=== PATIENT | male | born 1995 | race Caucasian/White ===

== ENCOUNTER 2016-08-18 17:05 | Emergency (ER) | payer BC, OTHER ==
[~2016-08-18] VITALS: Ht 180.3 cm; Wt 90.7 kg
[2016-08-18 17:22] LABS: BASOPHILS % (AUTO) 0 % (0-10); EOSINOPHILS % (AUTO) 0 % (0-10); LYMPHOCYTES # (AUTO) 0.7 X 10^3 (1.0-4.0); LYMPHOCYTES % (AUTO) 6 % (12-44); MEAN CORPUSCULAR HEMOGLOBIN 32 PG (25-34); MEAN CORPUSCULAR HGB CONC 37 G/DL (32-36); MEAN CORPUSCULAR VOLUME 88 FL (80-99); MEAN PLATELET VOLUME 11.8 FL (7.4-10.4); MONOCYTES # (AUTO) 0.7 X 10^3 (0.0-1.0); MONOCYTES % (AUTO) 6 % (0-12); NEUTROPHILS % (AUTO) 88 % (42-75); PLATELET COUNT 211 10^3/uL (130-400); RED CELL DISTRIBUTION WIDTH 12.5 % (10.0-14.5); WHITE BLOOD COUNT 11.3 10^3/uL (4.3-11.0)
[2016-08-18] MEDS ORDERED: LORazepam INJ 2 MG/ML (ATIVAN) VIAL IVP ONE (17:30)
[2016-08-18] MEDS ORDERED: NS 100 ML (IVPB) BAG IV ONE (17:30)
[2016-08-18] MEDS ORDERED: fentaNYL INJECTION 100 MCG/2 ML AMP IVP ONE (17:30)
[2016-08-18] MEDS ORDERED: FAMOTIDINE 20MG/2ML IV (PEPCID) IVP ONE (17:30)
[2016-08-18] MEDS ORDERED: IOHEXOL 350 MG/ML 100 ML (OMNIPAQUE 350) VIAL IV ONE (17:30)
[2016-08-18 17:39] LABS: ALANINE AMINOTRANSFERASE 46 U/L (0-55); ALBUMIN 4.2 G/DL (3.2-4.5); ALCOHOL < 10 MG/DL (<10); ANION GAP 15 MMOL/L (5-14); ASPARTATE AMINO TRANSFERASE 83 U/L (5-34); BILIRUBIN,TOTAL 1.7 MG/DL (0.1-1.0); BLOOD UREA NITROGEN 17 MG/DL (7-18); BUN/CREATININE RATIO 13; CALCIUM 8.9 MG/DL (8.5-10.1); CARBON DIOXIDE 19 MMOL/L (21-32); CHLORIDE 106 MMOL/L (98-107); CREATININE SERUM 1.27 MG/DL (0.60-1.30); GFR ESTIMATED > 60; GLUCOSE 103 MG/DL (70-105); LIPASE 57 U/L (8-78); POTASSIUM 3.3 MMOL/L (3.6-5.0); SODIUM 140 MMOL/L (135-145)
[2016-08-18 17:44] LABS: BAND NEUTROPHILS 0 %; BASOPHILS % (MANUAL) 0 %; EOSINOPHILS % (MANUAL) 0 %; LYMPHOCYTES % (MANUAL) 5 %; NEUTROPHILS % (MANUAL) 88 %
--- NOTE | 2016-08-18 18:05 | Diagnostic Imaging Report ---
PROCEDURE: CT abdomen and pelvis with contrast. TECHNIQUE: Multiple contiguous axial images were obtained through the abdomen and pelvis after administration of intravenous contrast. INDICATION: Mid abdominal pain with nausea and vomiting for 3 days. COMPARISON: None. DISCUSSION: The visualized lung bases are unremarkable. Normal heart size. No pleural or pericardial fluid. The gallbladder, liver, stomach, spleen, pancreas, adrenal glands, kidneys, urinary bladder, and prostate are unremarkable. The appendix is normal. The large and small bowel loops appear within normal limits without evidence of obstruction, pneumatosis, pneumoperitoneum. The abdominal aorta is normal in caliber. There is no ascites or pathologically enlarged lymph nodes identified. No acute osseous abnormality identified. IMPRESSION: No acute abnormality identified within either the abdomen or pelvis. Dictated by: Dictated on workstation # [id number]
--- NOTE | 2016-08-18 18:13 | ED Abdominal Pain ---
General Chief Complaint: Abdominal/GI Problems Stated Complaint: ABD PAIN Nursing Triage Note: PT SENT TO ED FROM [facility] WITH C/O ABD PAIN. PT REPORTS HE BEGAN HAVING PAIN THURSDAY AFTER HE HAD BEEN OUT DRINKING ON THURSDAY. HE ALSO C/O N/V. PT SENT TO ED FOR CT SCAN AND IRREGULAR LABS. Sepsis Screen: No Definite Risk Source of Information: Patient Exam Limitations: No Limitations History of Present Illness Time Seen By Provider: 17:04 Initial Comments This 21-year-old gentleman presents to the emergency room as a referral from Urgent Care with complaints of epigastric pain and vomiting. He went out drinking alcohol on Thursday and developed symptoms on Thursday. He also appears to be hyperventilating and has cramping in the hands as a result. He is very anxious and easily startled. He was given Zofran 4 mg IV and promethazine 50 mg IV prior to arrival. He also received 1 L of lactated Ringer's and 1 L of normal saline. He is still in some significant pain at this time. Lipase was mildly elevated on the labs performed by Urgent Care. Leukocytosis was also noted on his transfer and labs. Allergies and Home Medications Allergies Coded Allergies: No Known Drug Allergies (Unverified , 08/18/16) Home Medications Famotidine 20 Mg Tablet, 20 MG PO BID, #30 Prescribed by: LIZET WADE on 08/18/161928 Omeprazole 20 Mg Capsule.dr, 20 MG PO BID, #30 Prescribed by: LIZET WADE on 08/18/161928 Ondansetron 4 Mg Tab.rapdis, 4 MG SL Q4H PRN for NAUSEA-1ST LINE, #10 Prescribed by: LIZET WADE on 08/18/161928 Review of Systems Constitutional: no symptoms reported EENTM: No Symptoms Reported Respiratory: No Symptoms Reported Cardiovascular: No Symptoms Reported Gastrointestinal: See HPI Genitourinary: No Symptoms Reported Musculoskeletal: no symptoms reported Skin: no symptoms reported Psychiatric/Neurological: See HPI Endocrine: No Symptoms Reported Past Lubzptj-Rsyxbc-Fkucse Hx Patient Social History Alcohol Use: Occasionally Uses Recreational Drug Use: Yes Drug of Choice: MARIJUANA Smoking Status: Never a Smoker 2nd Hand Smoke Exposure: No Recent Foreign Travel: No Contact w/Someone Who Travel: No Recent Infectious Disease Expo: No Recent Hopitalizations: No Seasonal Allergies Seasonal Allergies: No Surgeries HX Surgeries: Yes Surgeries: Orthopedic (right fifth toe) Respiratory Hx Respiratory Disorders: No Cardiovascular Hx Cardiac Disorders: No Neurological Hx Neurological Disorders: No Reproductive System Hx Reproductive Disorders: No Genitourinary Hx Genitourinary Disorders: No Gastrointestinal Hx Gastrointestinal Disorders: No Musculoskeletal Hx Musculoskeletal Disorders: No Endocrine Hx Endocrine Disorders: No HEENT HX ENT Disorders: No Cancer Hx Cancer: No Psychosocial Hx Psychiatric Problems: No Integumentary HX Skin/Integumentary Disorder: Yes Skin/Integumentary Disorders: Psoriasis Blood Transfusions Hx Blood Disorders: No Family Medical History Significant Family History: Stroke Physical Exam Vital Signs VS - Last 72 Hours, by Label 08/18/16 08/18/16 17:10 19:40 Temp 98.6 98.6 Pulse 78 70 Resp 30 16 B/P (MAP) 111/72 Pulse Ox 100 100 O2 Delivery Room Air Capillary Refill : Less Than 3 Seconds General Appearance: WD/WN, mild distress HEENT: PERRL/EOMI, normal ENT inspection, pharynx normal Neck: normal inspection Respiratory: lungs clear, normal breath sounds, no respiratory distress, no accessory muscle use Cardiovascular: regular rate, rhythm, no edema, no murmur Gastrointestinal: normal bowel sounds, soft, tenderness (epigastrium) Extremities: no pedal edema 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8 H 7.4-10.4 FL Neutrophils (%) (Auto) 88 H 42-75 % Lymphocytes (%) (Auto) 6 L 12-44 % Monocytes (%) (Auto) 6 0-12 % Eosinophils (%) (Auto) 0 0-10 % Basophils (%) (Auto) 0 0-10 % Neutrophils # (Auto) 10.0 H 1.8-7.8 X 10^3 Lymphocytes # (Auto) 0.7 L 1.0-4.0 X 10^3 Monocytes # (Auto) 0.7 0.0-1.0 X 10^3 Eosinophils # (Auto) 0.0 0.0-0.3 10^3/uL Basophils # (Auto) 0.0 0.0-0.1 10^3/uL Neutrophils % (Manual) 88 % Lymphocytes % (Manual) 5 % Monocytes % (Manual) 7 % Eosinophils % (Manual) 0 % Basophils % (Manual) 0 % Band Neutrophils 0 % Blood Morphology Comment NORMAL Sodium Level 140 135-145 MMOL/L Potassium Level 3.3 L 3.6-5.0 MMOL/L Chloride Level 106 98-107 MMOL/L Carbon Dioxide Level 19 L 21-32 MMOL/L Anion Gap 15 H 5-14 MMOL/L Blood Urea Nitrogen 17 7-18 MG/DL Creatinine 1.27 0.60-1.30 MG/DL Estimat Glomerular Filtration Rate > 60 BUN/Creatinine Ratio 13 Glucose Level 103 70-105 MG/DL Calcium Level 8.9 8.5-10.1 MG/DL Magnesium Level 1.6 L 1.8-2.4 MG/DL Total Bilirubin 1.7 H 0.1-1.0 MG/DL Aspartate Amino Transf (AST/SGOT) 83 H 5-34 U/L Alanine Aminotransferase (ALT/SGPT) 46 0-55 U/L Alkaline Phosphatase 75 40-136 U/L Total Protein 7.0 6.4-8.2 G/DL Albumin 4.2 3.2-4.5 G/DL Amylase Level 46 25-125 U/L Lipase 57 8-78 U/L Serum Alcohol < 10 <10 MG/DL Urine Color YELLOW Urine Clarity CLEAR Urine pH 6 5-9 Urine Specific [place] 1.015 L 1.016-1.022 Urine Protein 2+ H NEGATIVE Urine Glucose (UA) NEGATIVE NEGATIVE Urine Ketones 4+ H NEGATIVE Urine Nitrite NEGATIVE NEGATIVE Urine Bilirubin NEGATIVE NEGATIVE Urine Urobilinogen NORMAL NORMAL MG/DL Urine Leukocyte Esterase 1+ H NEGATIVE Urine RBC (Auto) NEGATIVE NEGATIVE Urine RBC NONE /HPF Urine WBC NONE /HPF Urine Squamous Epithelial Cells RARE /HPF Urine Crystals PRESENT H /LPF Urine Calcium Oxalate Crystals RARE H /LPF Urine Bacteria NEGATIVE /HPF Urine Casts NONE /LPF Urine Mucus NEGATIVE /LPF Urine Culture Indicated NO Urine Opiates Screen NEGATIVE NEGATIVE Urine Oxycodone Screen NEGATIVE NEGATIVE Urine Methadone Screen NEGATIVE NEGATIVE Urine Propoxyphene Screen NEGATIVE NEGATIVE Urine Barbiturates Screen NEGATIVE NEGATIVE Ur Tricyclic Antidepressants Screen NEGATIVE NEGATIVE Urine Phencyclidine Screen NEGATIVE NEGATIVE Urine Amphetamines Screen POSITIVE H NEGATIVE Urine Methamphetamines Screen NEGATIVE NEGATIVE Urine Benzodiazepines Screen NEGATIVE NEGATIVE Urine Cocaine Screen NEGATIVE NEGATIVE Urine Cannabinoids Screen POSITIVE H NEGATIVE My Orders Orders - LIZET WASHINGTON MD Alcohol (08/18/16 17:16) Cbc With Automated Diff (08/18/16 17:16) Comprehensive Metabolic Panel (08/18/16 17:16) Drug Screen Stat (Urine) (08/18/16 17:16) Lipase (08/18/16 17:16) Ua Culture If Indicated (08/18/16 17:16) Fentanyl Injection (Sublimaze Injection (08/18/16 17:30) Famotidine Injection (Pepcid Injection) (08/18/16 17:30) Lorazepam Injection (Ativan Injection) (08/18/16 17:30) Ct Abdomen/Pelvis W (08/18/16 17:18) Manual Differential (08/18/16 17:12) Iohexol Injection (Omnipaque 350 Mg/Ml 1 (08/18/16 17:30) Ns (Ivpb) (Sodium Chloride 0.9% Ivpb Bag (08/18/16 17:30) Amylase (08/18/16 18:03) Magnesium (08/18/16 18:04) Lidocaine 2% Viscous 15 Ml (Xylocaine Vi (08/18/16 18:15) Antacid Suspension (Mylanta Suspension (08/18/16 18:15) Potassium Chloride (Tablet) (Klor Con Ta (08/18/16 19:30) Medications Given in ED Vital Signs/I&O Vital Sign - Last 12Hours 08/18/16 08/18/16 17:10 19:40 Temp 98.6 98.6 Pulse 78 70 Resp 30 16 B/P (MAP) 111/72 Pulse Ox 100 100 O2 Delivery Room Air Blood Pressure Mean: 85 Progress Note : Progress Note Pepcid and fentanyl were administered for treatment of pain. Ativan was given for the anxiety. CT scan was ordered due to the leukocytosis in combination with elevated lipase. In-house lipase and amylase were normal. CT demonstrated no significant abnormalities. GI cocktail was given after CT which did improve his pain. I addressed alcohol abuse and marijuana use with the patient. Potassium replacement was provided orally. He was dismissed home in improved condition. Diagnostic Imaging Plain Films/CT/US/NM/MRI: abdomen, pelvis Comments CT abdomen and pelvis viewed by me and report reviewed. See report below: NAME: [facility] REC#: [id number] PT STATUS: REG ER : 1995 PHYSICIAN: LIZET WASHIGNTON MD ADMIT DATE: 08/18/16/ER Draft Date of Exam:08/18/16 CT ABDOMEN/PELVIS W PROCEDURE: CT abdomen and pelvis with contrast. TECHNIQUE: Multiple contiguous axial images were obtained through the abdomen and pelvis after administration of intravenous contrast. INDICATION: Mid abdominal pain with nausea and vomiting for 3 days. COMPARISON: None. DISCUSSION: The visualized lung bases are unremarkable. Normal heart size. No pleural or pericardial fluid. The gallbladder, liver, stomach, spleen, pancreas, adrenal glands, kidneys, urinary bladder, and prostate are unremarkable. The appendix is normal. The large and small bowel loops appear within normal limits without evidence of obstruction, pneumatosis, pneumoperitoneum. The abdominal aorta is normal in caliber. There is no ascites or pathologically enlarged lymph nodes identified. No acute osseous abnormality identified. IMPRESSION: No acute abnormality identified within either the abdomen or pelvis. Dictated on workstation # [id number] Dict: 08/18/16 1801 Trans: 08/18/16 1804 [facility] [id number] Interpreted by: CHELSEA AZUL MD Departure Impression Impression: Primary Impression: Epigastric pain Additional Impressions: Gastritis Qualified Codes: K29.00 - Acute gastritis without bleeding Nausea and vomiting Qualified Codes: R11.2 - Nausea with vomiting, unspecified Alcohol use Anxiety attack Hypokalemia Disposition: HOME, SELF-CARE Condition: Improved Departure-Patient Inst. Decision time for Depature: 19:10 Referrals: UNKNOWN (PCP/Family) Primary Care Physician Patient Instructions: Acute Abdomen (Belly Pain), Adult (DC), Gastritis (DC) Add. Discharge Instructions: Start with noncarbonated clear liquids and gradually advance your diet with small quantities of bland food as tolerated. You may take Tylenol (acetaminophen) for pain but avoid NSAID medications such as ibuprofen, naproxen, etc. You may take Tums for stomach pain as well. Avoid the following: Large meals, eating close to bedtime, caffeine, carbonation , chocolate, spicy foods, alcohol, tobacco products, citrus fruits and juices, tomato products, fatty or greasy foods, mints, NSAID medications or anything else you know irritates your stomach. Follow-up with a primary care provider as as soon as possible. Avoid the use of stimulant medication such as Adderall and psychoactive substances such as marijuana as they may exacerbate your anxiety and worsen your stomach irritation. All discharge instructions reviewed with patient and/or family. Voiced understanding. Scripts Ondansetron (Zofran Odt) 4 Mg Tab.rapdis 4 MG SL Q4H Y for NAUSEA-1ST LINE, #10 TAB Prov: LIZET WASHINGTON MD 08/18/16 Famotidine (Pepcid) 20 Mg Tablet 20 MG PO BID, #30 TAB Prov: LIZET WASHINGTON MD 08/18/16 Omeprazole (Omeprazole) 20 Mg Capsule.dr 20 MG PO BID, #30 CAP Prov: LIZET WASHINGTON MD 08/18/16 LIZET WASHINGTON MD Aug 18, 2016 18:12
[2016-08-18] MEDS ORDERED: ANTACID SUSP 30 ML UDC (MYLANTA) PO ONE (18:15)
[2016-08-18] MEDS ORDERED: LIDOCAINE 2% VISCOUS 15 ML UDC PO ONE (18:15)
[2016-08-18 18:16] LABS: MAGNESIUM 1.6 MG/DL (1.8-2.4)
[2016-08-18 18:31] LABS: BILIRUBIN,URINE NEGATIVE (NEGATIVE); KETONES,URINE 4+ (NEGATIVE); LEUKOCYTE ESTERASE ,URINE 1+ (NEGATIVE); NITRITE,URINE NEGATIVE (NEGATIVE); PH,URINE 6 (5-9); PROTEIN,URINE 2+ (NEGATIVE); UROBILINOGEN,URINE NORMAL (NORMAL)
[2016-08-18 18:39] LABS: CALCIUM OXALATE CRYSTALS,UR RARE /LPF; SQUAMOUS EPITHELIAL CELL,UR RARE /HPF
[2016-08-18] MEDS ORDERED: OMEP20CA12 PO (19:29)
[2016-08-18] MEDS ORDERED: FAMO-119 PO (19:29)
[2016-08-18] MEDS ORDERED: ONDA4TAB8 SL (19:29)
[2016-08-18] MEDS ORDERED: KCL 10 MEQ TAB (MICRO K) PO ONE (19:30)
[2016-08-18 19:40] VITALS: BP 120/74
== END 2016-08-18 19:40 | disposition home or self-care (01) ==
LOC: ER 17:07
DX: K29.70 Gastritis, unspecified, without bleeding (principal); R11.2 Nausea with vomiting, unspecified; F10.10 Alcohol abuse, uncomplicated; F41.9 Anxiety disorder, unspecified; E87.6 Hypokalemia
CPT/HCPCS: 36415; 74177; 80053; 80306; 80320; 81000; 82150; 83690; 83735; 85007; 85027; 96374; 96375

== ENCOUNTER 2016-09-06 15:24 | Emergency (ER) | payer BC ==
[~2016-09-06] VITALS: Ht 180.3 cm; Wt 88.5 kg
[~2016-09-06 15:24] MED LIST: FAMO-119 PO; OMEP20CA12 PO; ONDA4TAB8 SL
[2016-09-06] MEDS ORDERED: NS IV 1000 ML 1,000 ML IV ONE (15:48)
[2016-09-06] MEDS ORDERED: ONDANSETRON 4 MG/2 ML (SDV) Z0FRAN IVP ONE ×2 (16:00→18:00)
[2016-09-06 16:08] LABS: BASOPHILS % (AUTO) 0 % (0-10); EOSINOPHILS # (AUTO) 0.2 10^3/uL (0.0-0.3); EOSINOPHILS % (AUTO) 2 % (0-10); LYMPHOCYTES # (AUTO) 0.8 X 10^3 (1.0-4.0); LYMPHOCYTES % (AUTO) 9 % (12-44); MEAN CORPUSCULAR HEMOGLOBIN 32 PG (25-34); MEAN CORPUSCULAR HGB CONC 36 G/DL (32-36); MEAN CORPUSCULAR VOLUME 90 FL (80-99); MEAN PLATELET VOLUME 11.4 FL (7.4-10.4); MONOCYTES # (AUTO) 0.6 X 10^3 (0.0-1.0); MONOCYTES % (AUTO) 6 % (0-12); NEUTROPHILS # (AUTO) 7.8 X 10^3 (1.8-7.8); NEUTROPHILS % (AUTO) 83 % (42-75); PLATELET COUNT 234 10^3/uL (130-400); RED BLOOD COUNT 4.77 10^6/uL (4.35-5.85); RED CELL DISTRIBUTION WIDTH 13.1 % (10.0-14.5); WHITE BLOOD COUNT 9.4 10^3/uL (4.3-11.0)
--- NOTE | 2016-09-06 16:32 | Diagnostic Imaging Report ---
INDICATION: Abdominal pain on the left. EXAMINATION: Upright and supine abdomen. FINDINGS: There is no evidence of free air under the diaphragm. There are no distended loops of bowel. There are no air-fluid levels. There is very little stool noted throughout the colon. No pathologic calcifications. IMPRESSION: Normal upright and supine KUB. Dictated by: Dictated on workstation # [id number]
[2016-09-06 16:33] LABS: ALANINE AMINOTRANSFERASE 45 U/L (0-55); ALBUMIN 4.7 G/DL (3.2-4.5); ANION GAP 13 MMOL/L (5-14); ASPARTATE AMINO TRANSFERASE 31 U/L (5-34); BLOOD UREA NITROGEN 12 MG/DL (7-18); BUN/CREATININE RATIO 10; CALCIUM 9.9 MG/DL (8.5-10.1); CARBON DIOXIDE 24 MMOL/L (21-32); CHLORIDE 104 MMOL/L (98-107); CREATININE SERUM 1.23 MG/DL (0.60-1.30); GFR ESTIMATED > 60; GLUCOSE 114 MG/DL (70-105); LIPASE 6 U/L (8-78); MAGNESIUM 2.1 MG/DL (1.8-2.4); POTASSIUM 3.9 MMOL/L (3.6-5.0); SODIUM 141 MMOL/L (135-145); TOTAL PROTEIN 7.8 G/DL (6.4-8.2); hs C REACTIVE PROTEIN 0.33 MG/DL (0.00-0.50)
[2016-09-06 16:34] LABS: ALCOHOL < 10 MG/DL (<10)
[2016-09-06 16:35] LABS: ERYTHROCYTE SEDIMENTATION RATE 6 MM/HR (0-15)
[2016-09-06 17:16] LABS: KETONES,URINE 4+ (NEGATIVE); LEUKOCYTE ESTERASE ,URINE 2+ (NEGATIVE); NITRITE,URINE NEGATIVE (NEGATIVE); PH,URINE 5 (5-9); PROTEIN,URINE 2+ (NEGATIVE); UROBILINOGEN,URINE 1 MG/DL (NORMAL)
[2016-09-06 17:39] LABS: BILIRUBIN,URINE 1+ (NEGATIVE)
[2016-09-06] MEDS ORDERED: NS IV 500 ML 500 ML IV ONE (17:51)
[2016-09-06] MEDS ORDERED: cefTRIAXone INJECTION 1,000 MG in NS (IVPB) 50 ML IV ONE (18:00)
[2016-09-06] MEDS ORDERED: CEPH-507 PO (18:19)
[2016-09-06] MEDS ORDERED: ONDA4TAB8 PO (18:19)
--- NOTE | 2016-09-06 18:20 | ED Abdominal Pain ---
General Chief Complaint: Abdominal/GI Problems Stated Complaint: SHARP ABD PAIN ON L SIDE Nursing Triage Note: C/O CONSTANT LEFT SIDED ABDOMINAL PAIN, NAUSEA/VOMITTING X16HRS Sepsis Screen: No Definite Risk Source of Information: Patient Exam Limitations: No Limitations History of Present Illness Time Seen By Provider: 15:38 Initial Comments This 21-year-old young man presents to the emergency room with complaints of left lower quadrant pain for about 16 hours. He has had recurrent episodes of vomiting and reports the pain is fairly constant. He denies diarrhea. Last bowel movement was last night at 22:00 and was normal. He has been trying to drink water throughout the day. His last meal was last night around 19:00. He has been trying to snack on crackers throughout the day but has been unable to keep them down. He was seen in this ER on August 18 for similar presentation except the location of the pain was more epigastric at that time. He was advised to discontinue alcohol consumption and was prescribed antacid therapy. A CT of the abdomen and pelvis with contrast at that time was negative. Patient has continued with antiacid medication but did resume consuming alcohol. He reports having 2 beers last night. He has not smoked marijuana since his prior ER visit. Allergies and Home Medications Allergies Coded Allergies: No Known Drug Allergies (Unverified , 08/18/16) Home Medications Cephalexin 500 Mg Capsule, 500 MG PO QID, #28 Prescribed by: LIZET WADE on 09/06/161818 Famotidine 20 Mg Tablet, 20 MG PO BID, #30 Prescribed by: LIZET WADE on 08/18/161928 Omeprazole 20 Mg Capsule.dr, 20 MG PO BID, #30 Prescribed by: LIZET WADE on 08/18/161928 Ondansetron 4 Mg Tab.rapdis, 4 MG SL Q4H PRN for NAUSEA-1ST LINE, #10 Prescribed by: LIZET WADE on 08/18/161928 Ondansetron 4 Mg Tab.rapdis, 4 MG PO Q4H PRN for NAUSEA/VOMITING-1ST LINE, #10 Prescribed by: LIZET WADE on 09/06/161818 Review of Systems Constitutional: no symptoms reported EENTM: No Symptoms Reported Respiratory: No Symptoms Reported Cardiovascular: No Symptoms Reported Gastrointestinal: See HPI Genitourinary: No Symptoms Reported Musculoskeletal: no symptoms reported Skin: no symptoms reported Psychiatric/Neurological: No Symptoms Reported Endocrine: No Symptoms Reported Past Vtcumck-Rngljs-Uxncll Hx Patient Social History Alcohol Use: Occasionally Uses Recreational Drug Use: Yes Drug of Choice: CANNIBUS Smoking Status: Never a Smoker Type Used: Smokeless Tobacco 2nd Hand Smoke Exposure: No Recent Foreign Travel: No Contact w/Someone Who Travel: No Recent Infectious Disease Expo: No Recent Hopitalizations: No Seasonal Allergies Seasonal Allergies: No Surgeries HX Surgeries: Yes Surgeries: Orthopedic Respiratory Hx Respiratory Disorders: No Cardiovascular Hx Cardiac Disorders: No Neurological Hx Neurological Disorders: No Reproductive System Hx Reproductive Disorders: No Genitourinary Hx Genitourinary Disorders: No Gastrointestinal Hx Gastrointestinal Disorders: Yes Gastrointestinal Disorders: Gastroesophageal Reflux Musculoskeletal Hx Musculoskeletal Disorders: No Endocrine Hx Endocrine Disorders: No HEENT HX ENT Disorders: No Cancer Hx Cancer: No Psychosocial Hx Psychiatric Problems: No Integumentary HX Skin/Integumentary Disorder: Yes Skin/Integumentary Disorders: Psoriasis Blood Transfusions Hx Blood Disorders: No Family Medical History Significant Family History: Stroke Physical Exam Vital Signs VS - Last 72 Hours, by Label 09/06/16 09/06/16 15:33 18:26 Temp 98.2 98.0 Pulse 60 52 Resp 16 16 B/P (MAP) 128/77 Pulse Ox 98 100 O2 Delivery Room Air Capillary Refill : Less Than 3 Seconds General Appearance: WD/WN, mild distress HEENT: PERRL/EOMI, normal ENT inspection, other (dry mucous membranes) Neck: normal inspection Respiratory: lungs clear, normal breath sounds, no respiratory distress, no accessory muscle use Cardiovascular: regular rate, rhythm, no edema, no murmur Gastrointestinal: normal bowel sounds, soft, no organomegaly, tenderness (mild to moderate in the left lower quadrant) Extremities: normal inspection, no pedal edema 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, no motor/sensory deficits, alert, normal mood/affect, oriented x 3 Skin: normal color, warm/dry Progress/Results/Core Measures Results/Orders Lab Results Laboratory Tests Test 09/06/16 16:00 09/06/16 16:55 Range/Units White Blood Count 9.4 4.3-11.0 10^3/uL Red Blood Count 4.77 4.35-5.85 10^6/uL Hemoglobin 15.3 13.3-17.7 G/DL Hematocrit 43 40-54 % Mean Corpuscular Volume 90 80-99 FL Mean Corpuscular Hemoglobin 32 25-34 PG Mean Corpuscular Hemoglobin Concent 36 32-36 G/DL Red Cell Distribution Width 13.1 10.0-14.5 % Platelet Count 234 130-400 10^3/uL Mean Platelet Volume 11.4 H 7.4-10.4 FL Neutrophils (%) (Auto) 83 H 42-75 % Lymphocytes (%) (Auto) 9 L 12-44 % Monocytes (%) (Auto) 6 0-12 % Eosinophils (%) (Auto) 2 0-10 % Basophils (%) (Auto) 0 0-10 % Neutrophils # (Auto) 7.8 1.8-7.8 X 10^3 Lymphocytes # (Auto) 0.8 L 1.0-4.0 X 10^3 Monocytes # (Auto) 0.6 0.0-1.0 X 10^3 Eosinophils # (Auto) 0.2 0.0-0.3 10^3/uL Basophils # (Auto) 0.0 0.0-0.1 10^3/uL Erythrocyte Sedimentation Rate 6 0-15 MM/HR Sodium Level 141 135-145 MMOL/L Potassium Level 3.9 3.6-5.0 MMOL/L Chloride Level 104 98-107 MMOL/L Carbon Dioxide Level 24 21-32 MMOL/L Anion Gap 13 5-14 MMOL/L Blood Urea Nitrogen 12 7-18 MG/DL Creatinine 1.23 0.60-1.30 MG/DL Estimat Glomerular Filtration Rate > 60 BUN/Creatinine Ratio 10 Glucose Level 114 H 70-105 MG/DL Calcium Level 9.9 8.5-10.1 MG/DL Magnesium Level 2.1 1.8-2.4 MG/DL Total Bilirubin 1.0 0.1-1.0 MG/DL Aspartate Amino Transf (AST/SGOT) 31 5-34 U/L Alanine Aminotransferase (ALT/SGPT) 45 0-55 U/L Alkaline Phosphatase 81 40-136 U/L C-Reactive Protein High Sensitivity 0.33 0.00-0.50 MG/DL Total Protein 7.8 6.4-8.2 G/DL Albumin 4.7 H 3.2-4.5 G/DL Lipase 6 L 8-78 U/L Serum Alcohol < 10 <10 MG/DL Urine Color DARK YELLOW Urine Clarity VERY CLOUDY H Urine pH 5 5-9 Urine Specific [place] 1.025 H 1.016-1.022 Urine Protein 2+ H NEGATIVE Urine Glucose (UA) NEGATIVE NEGATIVE Urine Ketones 4+ H NEGATIVE Urine Nitrite NEGATIVE NEGATIVE Urine Bilirubin 1+ H NEGATIVE Urine Urobilinogen 1 NORMAL MG/DL Urine Leukocyte Esterase 2+ H NEGATIVE Urine RBC (Auto) NEGATIVE NEGATIVE Urine RBC NONE /HPF Urine WBC 5-10 H /HPF Urine Crystals PRESENT H /LPF Urine Amorphous Sediment MOD BRADLEY URATES H /LPF Urine Bacteria LARGE H /HPF Urine Casts NONE /LPF Urine Mucus NEGATIVE /LPF Urine Culture Indicated YES Urine Opiates Screen NEGATIVE NEGATIVE Urine Oxycodone Screen NEGATIVE NEGATIVE Urine Methadone Screen NEGATIVE NEGATIVE Urine Propoxyphene Screen NEGATIVE NEGATIVE Urine Barbiturates Screen NEGATIVE NEGATIVE Ur Tricyclic Antidepressants Screen NEGATIVE NEGATIVE Urine Phencyclidine Screen NEGATIVE NEGATIVE Urine Amphetamines Screen NEGATIVE NEGATIVE Urine Methamphetamines Screen NEGATIVE NEGATIVE Urine Benzodiazepines Screen NEGATIVE NEGATIVE Urine Cocaine Screen NEGATIVE NEGATIVE Urine Cannabinoids Screen POSITIVE H NEGATIVE My Orders Orders - LIZET WASHINGTON MD Ua Culture If Indicated (09/06/16 15:38) Alcohol (09/06/16 15:48) Cbc With Automated Diff (09/06/16 15:48) Comprehensive Metabolic Panel (09/06/16 15:48) Drug Screen Stat (Urine) (09/06/16 15:48) Lipase (09/06/16 15:48) Magnesium (09/06/16 15:48) Saline Lock/Iv-Start (09/06/16 15:48) Ns Iv 1000 Ml (Sodium Chloride 0.9%) (09/06/16 15:48) Abdomen, Flat & Upright/Decub (09/06/16 15:49) Hs C Reactive Protein (09/06/16 15:49) Erythrocyte Sedimentation Rate (09/06/16 15:49) Ondansetron Injection (Zofran Injectio (09/06/16 16:00) Urine Culture (09/06/16 16:55) Ceftriaxone Injection (Rocephin Injectio (09/06/16 18:00) Ondansetron Injection (Zofran Injectio (09/06/16 18:00) Ns Iv 500 Ml (Sodium Chloride 0.9%) (09/06/16 17:51) Chlamydia Dna Urine Test (09/06/16 18:14) Neis Andrew Dna Urine Test (09/06/16 18:14) Medications Given in ED Vital Signs/I&O Vital Sign - Last 12Hours 09/06/16 09/06/16 15:33 18:26 Temp 98.2 98.0 Pulse 60 52 Resp 16 16 B/P (MAP) 128/77 Pulse Ox 98 100 O2 Delivery Room Air Intake and Output 09/07/16 00:00 Intake Total 1550 ml Balance 1550 ml Blood Pressure Mean: 94 Progress Note : Progress Note Patient was treated with Zofran and IV fluids. Pain gradually subsided. He required no pain medications. Urinary tract infection was suspected based off of UA. Patient also appeared to be dry. 1500 mL normal saline bolus was administered. Rocephin was administered for suspected infection. Patient was advised to establish with a primary care provider and follow-up on his culture results next week. Urine culture and gonorrhea and chlamydia screens were ordered. See discharge instructions. Departure Impression Impression: Primary Impression: Left lower quadrant abdominal pain of unknown etiology Additional Impressions: Urinary tract infection Qualified Codes: N39.0 - Urinary tract infection, site not specified Nausea and vomiting Qualified Codes: R11.2 - Nausea with vomiting, unspecified Disposition: 01 HOME, SELF-CARE Condition: Improved Departure-Patient Inst. Decision time for Depature: 18:00 Referrals: NO,LOCAL PHYSICIAN (PCP) Primary Care Physician SANDRA KEYS MD Patient Instructions: Urinary Tract Infection, Adult (DC) Add. Discharge Instructions: Drink plenty of clear liquids. Continue with your prior medications as prescribed. Use Zofran (ondansetron) as prescribed for nausea and vomiting. Return to emergency room if symptoms worsen. Please follow-up with a primary care provider as soon as possible to review cultures and continue with your evaluation. Consider discussing endoscopy with your doctor as a next step for further evaluation. Avoid use of alcohol, marijuana, or other illicit substances. Complete your antibiotics as prescribed. All discharge instructions reviewed with patient and/or family. Voiced understanding. Scripts Ondansetron (Zofran Odt) 4 Mg Tab.rapdis 4 MG PO Q4H Y for NAUSEA/VOMITING-1ST LINE, #10 TAB Prov: LIZET WASHINGTON MD 09/06/16 Cephalexin (Keflex) 500 Mg Capsule 500 MG PO QID, #28 CAP Prov: LIZET WASHINGTON MD 09/06/16 LIZET WASHINGTON MD Sep 06, 2016 18:20
[2016-09-06 18:26] VITALS: BP 112/64
[2016-09-10 08:04] LABS: CHLAMYDIA DNA URINE Negative (Negative); NEISSERIA GONORRHEA DNA URINE Negative (Negative)
== END 2016-09-06 18:27 | disposition home or self-care (01) ==
LOC: EDUNIT# 15:24 → ER 15:26
DX: R10.32 Left lower quadrant pain (principal); R11.2 Nausea with vomiting, unspecified; N39.0 Urinary tract infection, site not specified; F12.90 Cannabis use, unspecified, uncomplicated
CPT/HCPCS: 36415; 74020; 80053; 80306; 80320; 81000; 83690; 83735; 85025; 85652; 86141; 87088; 87491; 87591; 96361; 96365; 96375; 96376

== ENCOUNTER 2016-10-23 08:45 | Emergency (ER) | payer BC ==
[~2016-10-23] VITALS: Ht 182.9 cm; Wt 97.5 kg
[~2016-10-23 08:45] MED LIST changes: +CEPH-507 PO; +ONDA4TAB8 PO
[2016-10-23] MEDS ORDERED: ONDANSETRON 4 MG/2 ML (SDV) Z0FRAN IVP ONE (10:15)
[2016-10-23] MEDS ORDERED: NS IV 1000 ML 1,000 ML IV SCH ×2 (10:15→12:15)
[2016-10-23 10:23] LABS: BASOPHILS % (AUTO) 0 % (0-10); EOSINOPHILS % (AUTO) 0 % (0-10); LYMPHOCYTES # (AUTO) 0.9 X 10^3 (1.0-4.0); LYMPHOCYTES % (AUTO) 7 % (12-44); MEAN CORPUSCULAR HEMOGLOBIN 32 PG (25-34); MEAN CORPUSCULAR HGB CONC 36 G/DL (32-36); MEAN CORPUSCULAR VOLUME 89 FL (80-99); MEAN PLATELET VOLUME 11.2 FL (7.4-10.4); MONOCYTES # (AUTO) 0.4 X 10^3 (0.0-1.0); MONOCYTES % (AUTO) 3 % (0-12); NEUTROPHILS # (AUTO) 11.4 X 10^3 (1.8-7.8); NEUTROPHILS % (AUTO) 89 % (42-75); PLATELET COUNT 226 10^3/uL (130-400); RED BLOOD COUNT 5.02 10^6/uL (4.35-5.85); WHITE BLOOD COUNT 12.7 10^3/uL (4.3-11.0)
[2016-10-23] MEDS ORDERED: PROCHLORPERAZINE 10 MG/2ML INJ (COMPAZINE) IV ONE (10:30)
[2016-10-23] MEDS ORDERED: HALOPERIDOL 5 MG/ML (HALDOL) AMP IM ONE (10:30)
[2016-10-23] MEDS ORDERED: diphenhydrAMINE 50 MG/ML INJ (BENADRYL) IVP ONE (10:30)
--- NOTE | 2016-10-23 10:31 | ED Abdominal Pain ---
General Chief Complaint: Abdominal/GI Problems Stated Complaint: ABD PAIN/NAUSEA Source of Information: Patient Exam Limitations: No Limitations History of Present Illness Time Seen By Provider: 10:28 Initial Comments To ER with diffuse abdominal pain nausea and vomiting. This was present 2 days ago then resolved and recurred today. The only thing that improves this is hot showers. He is a frequent (daily) user of marijuana. He's been here to the emergency room a couple of times for the same complaint. He denies diarrhea fevers or chills. Timing/Duration: Intermittent Severity/Quality: Cramping Location: Generalized Abdomen Radiation: No Radiation Activities at Onset: None Associated Symptoms: Nausea/Vomiting Allergies and Home Medications Allergies Coded Allergies: No Known Drug Allergies (Unverified , 08/18/16) Home Medications Cephalexin 500 Mg Capsule, 500 MG PO QID, #28 Prescribed by: LIZET WADE on 09/06/161818 Famotidine 20 Mg Tablet, 20 MG PO BID, #30 Prescribed by: LIZET WADE on 08/18/161928 Omeprazole 20 Mg Capsule.dr, 20 MG PO BID, #30 Prescribed by: LIZET WADE on 08/18/161928 Ondansetron 4 Mg Tab.rapdis, 4 MG SL Q4H PRN for NAUSEA-1ST LINE, #10 Prescribed by: LIZET WADE on 08/18/161928 Ondansetron 4 Mg Tab.rapdis, 4 MG PO Q4H PRN for NAUSEA/VOMITING-1ST LINE, #10 Prescribed by: LIZET WADE on 09/06/161818 Review of Systems Constitutional: see HPI EENTM: No Symptoms Reported Respiratory: No Symptoms Reported Cardiovascular: No Symptoms Reported Gastrointestinal: See HPI, Abdominal Pain, Nausea, Vomiting Genitourinary: No Symptoms Reported Musculoskeletal: no symptoms reported Skin: no symptoms reported Psychiatric/Neurological: No Symptoms Reported Endocrine: No Symptoms Reported Hematologic/Lymphatic: No Symptoms Reported Past Wwujbsb-Nvypur-Okyova Hx Patient Social History Drug of Choice: CANNIBUS Type Used: Smokeless Tobacco 2nd Hand Smoke Exposure: No Recent Foreign Travel: No Contact w/Someone Who Travel: No Recent Hopitalizations: No Seasonal Allergies Seasonal Allergies: No Surgeries HX Surgeries: Yes Surgeries: Orthopedic Respiratory Hx Respiratory Disorders: No Cardiovascular Hx Cardiac Disorders: No Neurological Hx Neurological Disorders: No Reproductive System Hx Reproductive Disorders: No Genitourinary Hx Genitourinary Disorders: No Gastrointestinal Hx Gastrointestinal Disorders: Yes Gastrointestinal Disorders: Gastroesophageal Reflux Musculoskeletal Hx Musculoskeletal Disorders: No Endocrine Hx Endocrine Disorders: No HEENT HX ENT Disorders: No Cancer Hx Cancer: No Psychosocial Hx Psychiatric Problems: No Integumentary HX Skin/Integumentary Disorder: Yes Skin/Integumentary Disorders: Psoriasis Blood Transfusions Hx Blood Disorders: No Family Medical History Significant Family History: Stroke Physical Exam Vital Signs VS - Last 72 Hours, by Label 10/23/16 10/23/16 09:54 10:34 Temp 98.1 98.6 Pulse 110 Resp 18 B/P (MAP) 137/80 Pulse Ox 98 O2 Delivery Room Air Capillary Refill : General Appearance: WD/WN, no apparent distress HEENT: PERRL/EOMI, normal ENT inspection Neck: non-tender, full range of motion Respiratory: no respiratory distress, no accessory muscle use Cardiovascular: regular rate, rhythm, no murmur Gastrointestinal: normal bowel sounds, soft, tenderness Extremities: normal range of motion, non-tender Neurologic/Psychiatric: alert, normal mood/affect, oriented x 3 Skin: normal color, warm/dry Progress/Results/Core Measures Results/Orders Lab Results Laboratory Tests Test 10/23/16 09:10 Range/Units White Blood Count 12.7 H 4.3-11.0 10^3/uL Red Blood Count 5.02 4.35-5.85 10^6/uL Hemoglobin 16.0 13.3-17.7 G/DL Hematocrit 45 40-54 % Mean Corpuscular Volume 89 80-99 FL Mean Corpuscular Hemoglobin 32 25-34 PG Mean Corpuscular Hemoglobin Concent 36 32-36 G/DL Red Cell Distribution Width 12.0 10.0-14.5 % Platelet Count 226 130-400 10^3/uL Mean Platelet Volume 11.2 H 7.4-10.4 FL Neutrophils (%) (Auto) 89 H 42-75 % Lymphocytes (%) (Auto) 7 L 12-44 % Monocytes (%) (Auto) 3 0-12 % Eosinophils (%) (Auto) 0 0-10 % Basophils (%) (Auto) 0 0-10 % Neutrophils # (Auto) 11.4 H 1.8-7.8 X 10^3 Lymphocytes # (Auto) 0.9 L 1.0-4.0 X 10^3 Monocytes # (Auto) 0.4 0.0-1.0 X 10^3 Eosinophils # (Auto) 0.0 0.0-0.3 10^3/uL Basophils # (Auto) 0.0 0.0-0.1 10^3/uL Neutrophils % (Manual) 90 % Lymphocytes % (Manual) 8 % Monocytes % (Manual) 2 % Blood Morphology Comment NORMAL Sodium Level 142 135-145 MMOL/L Potassium Level 3.2 L 3.6-5.0 MMOL/L Chloride Level 104 98-107 MMOL/L Carbon Dioxide Level 20 L 21-32 MMOL/L Anion Gap 18 H 5-14 MMOL/L Blood Urea Nitrogen 15 7-18 MG/DL Creatinine 1.31 H 0.60-1.30 MG/DL Estimat Glomerular Filtration Rate > 60 BUN/Creatinine Ratio 11 0-20 Glucose Level 154 H 70-105 MG/DL Calcium Level 10.2 H 8.5-10.1 MG/DL Total Bilirubin 1.0 0.1-1.0 MG/DL Aspartate Amino Transf (AST/SGOT) 24 5-34 U/L Alanine Aminotransferase (ALT/SGPT) 36 0-55 U/L Alkaline Phosphatase 73 40-136 U/L Total Protein 7.7 6.4-8.2 GM/DL Albumin 5.0 H 3.2-4.5 GM/DL Serum Alcohol < 10 <10 MG/DL My Orders Orders - SHERRY LERMA APRN Prochlorperazine Injection (Compazine In (10/23/16 10:30) Diphenhydramine Injection (Benadryl Inje (10/23/16 10:30) Haloperidol Injection (Haldol Injectio (10/23/16 10:30) Prochlorperazine Injection (Compazine In (10/23/16 11:30) Prochlorperazine Injection (Compazine In (10/23/16 11:24) Medications Given in ED Current Medications Medications Dose Ordered Sig/Fabian Route Start Time Stop Time Status Last Admin Dose Admin Diphenhydramine HCl 25 mg ONCE ONCE IVP 10/23/16 10:30 10/23/16 10:31 DC 10/23/16 10:34 25 MG Haloperidol Lactate 5 mg ONCE ONCE IM 10/23/16 10:30 10/23/16 10:31 DC 10/23/16 10:34 5 MG Ondansetron HCl 8 mg ONCE ONCE IVP 10/23/16 10:15 10/23/16 10:16 DC 10/23/16 10:33 8 MG Prochlorperazine Edisylate 10 mg STK-MED ONCE .ROUTE 10/23/16 11:24 10/23/16 11:29 DC 10/23/16 11:30 10 MG Vital Signs/I&O Vital Sign - Last 12Hours 10/23/16 10/23/16 09:54 10:34 Temp 98.1 98.6 Pulse 110 Resp 18 B/P (MAP) 137/80 Pulse Ox 98 O2 Delivery Room Air Progress Note : Progress Note 1029-I believe this to be hyperemesis cannabinoids syndrome. I will order 5 mg of IM Haldol. Patient is still actively vomiting despite 8 mg of IV Zofran. Pain is better. WIll give one additional liter of IVF, 1mg IV ativan, then DC to home. ECG Initial ECG Impression Date: Oct 23, 2016 Departure Communication Progress Notes 1205- still nauseous despite 8 mg of Zofran, 25 mg of Benadryl, 5 milligrams of intramuscular Haldol, 5 mg of IV Compazine. Impression Impression: Primary Impression: Cannabinoid hyperemesis syndrome Disposition: 01 HOME, SELF-CARE Condition: Stable Departure-Patient Inst. Decision time for Depature: 10:30 Referrals: NO,LOCAL PHYSICIAN (PCP/Family) Primary Care Physician Patient Instructions: NO INSTRUCTIONS GIVEN Add. Discharge Instructions: 1. If you wish for these episodes of persistent nausea vomiting and abdominal pain to stop, you must stop the marijuana use. If she stop it, he'll notice improvement in 3-4 weeks. 2. All discharge instructions reviewed with patient and/or family. Voiced understanding. Scripts Prochlorperazine Maleate (Compazine) 10 Mg Tablet 10 MG PO TID Y for NAUSEA/VOMITING-1ST LINE, #10 TAB Prov: SHERRY LERMA APRN 10/23/16 SHERRY LERMA APRN Oct 23, 2016 10:31
[2016-10-23 10:40] LABS: ALANINE AMINOTRANSFERASE 36 U/L (0-55); ANION GAP 18 MMOL/L (5-14); ASPARTATE AMINO TRANSFERASE 24 U/L (5-34); BLOOD UREA NITROGEN 15 MG/DL (7-18); BUN/CREATININE RATIO 11 (0-20); CALCIUM 10.2 MG/DL (8.5-10.1); CARBON DIOXIDE 20 MMOL/L (21-32); CHLORIDE 104 MMOL/L (98-107); CREATININE SERUM 1.31 MG/DL (0.60-1.30); GFR ESTIMATED > 60; GLUCOSE 154 MG/DL (70-105); HEMOLYSIS 10 (0-29); ICTERUS 1.2 (0-1.9); LIPEMIA 2 (0-49); POTASSIUM 3.2 MMOL/L (3.6-5.0); SODIUM 142 MMOL/L (135-145); TOTAL PROTEIN 7.7 GM/DL (6.4-8.2)
[2016-10-23 10:44] LABS: ALCOHOL < 10 MG/DL (<10)
[2016-10-23 10:55] LABS: LYMPHOCYTES % (MANUAL) 8 %; NEUTROPHILS % (MANUAL) 90 %
[2016-10-23] MEDS ORDERED: PROCHLORPERAZINE 10 MG/2ML INJ (COMPAZINE) ONE (11:24)
[2016-10-23] MEDS: PROCHLORPERAZINE 10 MG/2ML INJ (COMPAZINE) IV ONE ×2 (11:29→11:31)
[2016-10-23] MEDS ORDERED: PROC-1 PO (12:08)
[2016-10-23] MEDS ORDERED: LORazepam INJ 2 MG/ML (ATIVAN) VIAL IVP ONE (12:15)
[2016-10-23 13:27] VITALS: BP 128/70
== END 2016-10-23 13:27 | disposition home or self-care (01) ==
LOC: EDUNIT# 08:45 → ER 08:47
DX: F12.129 Cannabis abuse with intoxication, unspecified (principal); R11.2 Nausea with vomiting, unspecified
CPT/HCPCS: 36415; 80053; 80320; 85007; 85027

== ENCOUNTER 2016-10-25 06:38 | Emergency (ER) | payer BC ==
[~2016-10-25] VITALS: Ht 182.9 cm; Wt 90.7 kg
[~2016-10-25 06:38] MED LIST changes: +PROC-1 PO
[2016-10-25] MEDS ORDERED: ONDANSETRON 4 MG/2 ML (SDV) Z0FRAN ONE (06:44)
--- NOTE | 2016-10-25 07:04 | ED Abdominal Pain ---
General Chief Complaint: Abdominal/GI Problems Stated Complaint: ABD PAIN,NAUSEA,VOMITING Nursing Triage Note: Pt presents to ED with c/o vomiting since , was seen in ED then and dx with cannab. hyperemesis. Pt reports vomiting is now unbearable, last dose of Compazine this AM but he vomited shortly after. Zofran 8 mg IVP given in triage. Sepsis Screen: No Definite Risk Source of Information: Patient History of Present Illness Time Seen By Provider: 06:58 Initial Comments This 21-year-old white male presents with persistent vomiting for the last 48 hours. He was evaluated in the emergency department 2 days ago. His vomiting was felt to be secondary to his cannabis use. The patient has been using Compazine unsuccessfully at home. Patient denies associated blood in his emesis or stool. He's had no fever or chill. He denies dysuria or frequency. He has had no associated shortness of breath, cough, headache or stiff neck, or change in medications. Patient relates that when he was here in August that he had an " infected gallbladder". No surgery or subsequent follow-up occurred. Allergies and Home Medications Allergies Coded Allergies: No Known Drug Allergies (Unverified , 08/18/16) Home Medications Cephalexin 500 Mg Capsule, 500 MG PO QID, #28 Prescribed by: LIZET WADE on 09/06/161818 Famotidine 20 Mg Tablet, 20 MG PO BID, #30 Prescribed by: LIZET WADE on 08/18/161928 Omeprazole 20 Mg Capsule.dr, 20 MG PO BID, #30 Prescribed by: LIZET WADE on 08/18/161928 Ondansetron 4 Mg Tab.rapdis, 4 MG SL Q4H PRN for NAUSEA-1ST LINE, #10 Prescribed by: LIZET WADE on 08/18/161928 Ondansetron 4 Mg Tab.rapdis, 4 MG PO Q4H PRN for NAUSEA/VOMITING-1ST LINE, #10 Prescribed by: LIEZT WADE on 09/06/161818 Prochlorperazine Maleate 10 Mg Tablet, 10 MG PO TID PRN for NAUSEA/VOMITING-1ST LINE, #10 Prescribed by: SHERRY LERMA on 10/23/16 1208 Review of Systems Constitutional: No chills, No fever EENTM: No Blurred Vision Respiratory: Denies Cough Cardiovascular: Denies Chest Pain Gastrointestinal: See HPI, Abdominal Pain, Denies Diarrhea, Nausea, Vomiting Genitourinary: Denies Burning Musculoskeletal: No back pain Skin: No rash Psychiatric/Neurological: No Symptoms Reported Endocrine: No Symptoms Reported Hematologic/Lymphatic: No Symptoms Reported Past Enigtbm-Njhbmp-Jxaslh Hx Patient Social History Alcohol Use: Occasionally Uses Recreational Drug Use: Yes (hasn't smoke since ) Drug of Choice: CANNIBUS Smoking Status: Never a Smoker Type Used: Smokeless Tobacco 2nd Hand Smoke Exposure: No Recent Foreign Travel: No Contact w/Someone Who Travel: No Recent Infectious Disease Expo: No Recent Hopitalizations: No Immunizations Up To Date Tetanus Booster (TDap): Less than 5yrs Seasonal Allergies Seasonal Allergies: No Surgeries HX Surgeries: Yes Surgeries: Orthopedic Respiratory Hx Respiratory Disorders: No Cardiovascular Hx Cardiac Disorders: No Neurological Hx Neurological Disorders: No Reproductive System Hx Reproductive Disorders: No Genitourinary Hx Genitourinary Disorders: No Gastrointestinal Hx Gastrointestinal Disorders: Yes Gastrointestinal Disorders: Gastroesophageal Reflux Musculoskeletal Hx Musculoskeletal Disorders: No Endocrine Hx Endocrine Disorders: No HEENT HX ENT Disorders: No Cancer Hx Cancer: No Psychosocial Hx Psychiatric Problems: No Integumentary HX Skin/Integumentary Disorder: Yes Skin/Integumentary Disorders: Psoriasis Blood Transfusions Hx Blood Disorders: No Reviewed Nursing Assessment Reviewed/Agree w Nursing PMH: Yes Family Medical History Significant Family History: Stroke Physical Exam Vital Signs VS - Last 72 Hours, by Label 10/25/16 10/25/16 06:40 07:48 Temp 98.0 Pulse 90 Resp 19 B/P (MAP) 141/85 Pulse Ox 98 O2 Delivery Nasal Cannula O2 Flow Rate 2.00 Capillary Refill : Less Than 3 Seconds General Appearance: WD/WN, mild distress, moderate distress HEENT: normal ENT inspection Neck: normal inspection Respiratory: lungs clear Cardiovascular: normal peripheral pulses, regular rate, rhythm Gastrointestinal: abnormal bowel sounds (hypoactive bowel sounds are present), No distended, No guarding, No rebound, tenderness Extremities: normal range of motion, non-tender, normal inspection Back: normal inspection, no CVA tenderness, no vertebral tenderness Neurologic/Psychiatric: no motor/sensory deficits, alert, normal mood/affect Skin: normal color, warm/dry Progress/Results/Core Measures Results/Orders Lab Results Laboratory Tests Test 10/25/16 06:45 10/25/16 08:40 Range/Units White Blood Count 12.7 H 4.3-11.0 10^3/uL Red Blood Count 4.95 4.35-5.85 10^6/uL Hemoglobin 15.7 13.3-17.7 G/DL Hematocrit 44 40-54 % Mean Corpuscular Volume 89 80-99 FL Mean Corpuscular Hemoglobin 32 25-34 PG Mean Corpuscular Hemoglobin Concent 36 32-36 G/DL Red Cell Distribution Width 12.0 10.0-14.5 % Platelet Count 212 130-400 10^3/uL Mean Platelet Volume 11.8 H 7.4-10.4 FL Neutrophils (%) (Auto) 79 H 42-75 % Lymphocytes (%) (Auto) 15 12-44 % Monocytes (%) (Auto) 6 0-12 % Eosinophils (%) (Auto) 0 0-10 % Basophils (%) (Auto) 0 0-10 % Neutrophils # (Auto) 10.1 H 1.8-7.8 X 10^3 Lymphocytes # (Auto) 1.9 1.0-4.0 X 10^3 Monocytes # (Auto) 0.7 0.0-1.0 X 10^3 Eosinophils # (Auto) 0.0 0.0-0.3 10^3/uL Basophils # (Auto) 0.0 0.0-0.1 10^3/uL Sodium Level 142 135-145 MMOL/L Potassium Level 3.3 L 3.6-5.0 MMOL/L Chloride Level 107 98-107 MMOL/L Carbon Dioxide Level 19 L 21-32 MMOL/L Anion Gap 16 H 5-14 MMOL/L Blood Urea Nitrogen 10 7-18 MG/DL Creatinine 1.25 0.60-1.30 MG/DL Estimat Glomerular Filtration Rate > 60 BUN/Creatinine Ratio 8 0-20 Glucose Level 147 H 70-105 MG/DL Calcium Level 9.6 8.5-10.1 MG/DL Total Bilirubin 0.9 0.1-1.0 MG/DL Aspartate Amino Transf (AST/SGOT) 32 5-34 U/L Alanine Aminotransferase (ALT/SGPT) 30 0-55 U/L Alkaline Phosphatase 75 40-136 U/L Total Protein 7.5 6.4-8.2 GM/DL Albumin 4.6 H 3.2-4.5 GM/DL Lipase 27 8-78 U/L Urine Color YELLOW Urine Clarity SLIGHTLY CLOUDY Urine pH 8 5-9 Urine Specific [place] 1.020 1.016-1.022 Urine Protein NEGATIVE NEGATIVE Urine Glucose (UA) NEGATIVE NEGATIVE Urine Ketones 3+ H NEGATIVE Urine Nitrite NEGATIVE NEGATIVE Urine Bilirubin NEGATIVE NEGATIVE Urine Urobilinogen NORMAL NORMAL MG/DL Urine Leukocyte Esterase NEGATIVE NEGATIVE Urine RBC (Auto) NEGATIVE NEGATIVE Urine RBC NONE /HPF Urine WBC NONE /HPF Urine Crystals PRESENT H /LPF Urine Amorphous Sediment [place] PHOSPHATE H /LPF Urine Bacteria NEGATIVE /HPF Urine Casts NONE /LPF Urine Mucus NEGATIVE /LPF Urine Culture Indicated NO Urine Opiates Screen NEGATIVE NEGATIVE Urine Oxycodone Screen NEGATIVE NEGATIVE Urine Methadone Screen NEGATIVE NEGATIVE Urine Propoxyphene Screen NEGATIVE NEGATIVE Urine Barbiturates Screen NEGATIVE NEGATIVE Ur Tricyclic Antidepressants Screen NEGATIVE NEGATIVE Urine Phencyclidine Screen NEGATIVE NEGATIVE Urine Amphetamines Screen NEGATIVE NEGATIVE Urine Methamphetamines Screen NEGATIVE NEGATIVE Urine Benzodiazepines Screen NEGATIVE NEGATIVE Urine Cocaine Screen NEGATIVE NEGATIVE Urine Cannabinoids Screen POSITIVE H NEGATIVE My Orders Orders - KIM POWER MD Ondansetron Injection (Zofran Injectio (10/25/16 06:44) Cbc With Automated Diff (10/25/16 07:07) Comprehensive Metabolic Panel (10/25/16 07:07) Lipase (10/25/16 07:07) Ua Culture If Indicated (10/25/16 07:07) Drug Screen Stat (Urine) (10/25/16 07:07) Ondansetron Injection (Zofran Injectio (10/25/16 07:15) Fentanyl Injection (Sublimaze Injection (10/25/16 07:15) Ns Iv 1000 Ml (Sodium Chloride 0.9%) (10/25/16 07:15) Diazepam Injection (Valium Injection) (10/25/16 07:30) Fentanyl Injection (Sublimaze Injection (10/25/16 08:45) Medications Given in ED Current Medications Medications Dose Ordered Sig/Fabian Route Start Time Stop Time Status Last Admin Dose Admin Diazepam 5 mg ONCE ONCE IV 10/25/16 07:30 10/25/16 07:31 DC 10/25/16 07:27 5 MG Fentanyl Citrate 50 mcg ONCE ONCE IVP 10/25/16 07:15 10/25/16 07:16 DC 10/25/16 07:27 50 MCG Fentanyl Citrate 50 mcg ONCE ONCE IVP 10/25/16 08:45 10/25/16 08:46 DC 10/25/16 08:40 50 MCG Ondansetron HCl 4 mg STK-MED ONCE .ROUTE 10/25/16 06:44 10/25/16 06:50 DC 10/25/16 06:59 8 MG Vital Signs/I&O Vital Sign - Last 12Hours 10/25/16 10/25/16 06:40 07:48 Temp 98.0 Pulse 90 Resp 19 B/P (MAP) 141/85 Pulse Ox 98 O2 Delivery Nasal Cannula O2 Flow Rate 2.00 Blood Pressure Mean: 103 Progress Note : Time: 09:14 Progress Note The patient was treated with IV Zofran and Valium. His abdominal pain was treated with 50 g of fentanyl. Normal saline was administered. Patient was observed in the emergency department for approximately 2 hours. The patient was improved. I discussed the patient's presentation with him. He understands the really does need to stop smoking marijuana. He is agreeable to this. I'll send the patient home with clear instructions to come back if he has any further significant problems. Furthermore I will give him a few hydrocodone for pain, Zofran and Compazine for nausea, and Valium for symptomatic relief. Once patient follow up with his caregiver of choice on Thursday. Most importantly the patient understands and needs to stop smoking marijuana. Departure Impression Impression: Primary Impression: Cannabinoid hyperemesis syndrome Disposition: 01 HOME, SELF-CARE Condition: Improved Departure-Patient Inst. Decision time for Depature: 09:17 Referrals: NO,LOCAL PHYSICIAN (PCP) Primary Care Physician Add. Discharge Instructions: Valium, Zofran, Compazine, and hydrocodone as prescribed. Avoid smoking marijuana. Follow up with [facility] for your caregiver of choice on Thursday. Return of any problems. All discharge instructions reviewed with patient and/or family. Voiced understanding. KIM POWER MD Oct 25, 2016 07:04
[2016-10-25 07:15] LABS: BASOPHILS % (AUTO) 0 % (0-10); EOSINOPHILS % (AUTO) 0 % (0-10); LYMPHOCYTES # (AUTO) 1.9 X 10^3 (1.0-4.0); LYMPHOCYTES % (AUTO) 15 % (12-44); MEAN CORPUSCULAR HEMOGLOBIN 32 PG (25-34); MEAN CORPUSCULAR HGB CONC 36 G/DL (32-36); MEAN CORPUSCULAR VOLUME 89 FL (80-99); MEAN PLATELET VOLUME 11.8 FL (7.4-10.4); MONOCYTES # (AUTO) 0.7 X 10^3 (0.0-1.0); MONOCYTES % (AUTO) 6 % (0-12); NEUTROPHILS # (AUTO) 10.1 X 10^3 (1.8-7.8); NEUTROPHILS % (AUTO) 79 % (42-75); PLATELET COUNT 212 10^3/uL (130-400); RED BLOOD COUNT 4.95 10^6/uL (4.35-5.85); WHITE BLOOD COUNT 12.7 10^3/uL (4.3-11.0)
[2016-10-25] MEDS ORDERED: fentaNYL INJECTION 100 MCG/2 ML AMP IVP ONE ×2 (07:15→08:45)
[2016-10-25] MEDS ORDERED: NS IV 1000 ML 1,000 ML IV SCH (07:15)
[2016-10-25] MEDS ORDERED: ONDANSETRON 4 MG/2 ML (SDV) Z0FRAN IVP ONE (07:15)
[2016-10-25 07:29] LABS: ALANINE AMINOTRANSFERASE 30 U/L (0-55); ALBUMIN 4.6 GM/DL (3.2-4.5); ANION GAP 16 MMOL/L (5-14); ASPARTATE AMINO TRANSFERASE 32 U/L (5-34); BILIRUBIN,TOTAL 0.9 MG/DL (0.1-1.0); BLOOD UREA NITROGEN 10 MG/DL (7-18); BUN/CREATININE RATIO 8 (0-20); CALCIUM 9.6 MG/DL (8.5-10.1); CARBON DIOXIDE 19 MMOL/L (21-32); CHLORIDE 107 MMOL/L (98-107); CREATININE SERUM 1.25 MG/DL (0.60-1.30); GFR ESTIMATED > 60; GLUCOSE 147 MG/DL (70-105); HEMOLYSIS 19 (-100-29); ICTERUS 1.1 (-100-1.9); LIPASE 27 U/L (8-78); LIPEMIA 2 (-100-49); POTASSIUM 3.3 MMOL/L (3.6-5.0); SODIUM 142 MMOL/L (135-145); TOTAL PROTEIN 7.5 GM/DL (6.4-8.2)
[2016-10-25] MEDS ORDERED: DIAZEPAM INJ 10 MG/2 ML (VALIUM) SYR IV ONE (07:30)
[2016-10-25 08:49] LABS: BILIRUBIN,URINE NEGATIVE (NEGATIVE); KETONES,URINE 3+ (NEGATIVE); LEUKOCYTE ESTERASE ,URINE NEGATIVE (NEGATIVE); NITRITE,URINE NEGATIVE (NEGATIVE); PH,URINE 8 (5-9); PROTEIN,URINE NEGATIVE (NEGATIVE); UROBILINOGEN,URINE NORMAL (NORMAL)
[2016-10-25 09:28] VITALS: BP 128/71
== END 2016-10-25 09:28 | disposition home or self-care (01) ==
LOC: EDUNIT# 06:38 → ER 06:41
DX: F12.188 Cannabis abuse with other cannabis-induced disorder (principal); R11.10 Vomiting, unspecified; K21.9 Gastro-esophageal reflux disease without esophagitis; F17.290 Nicotine dependence, other tobacco product, uncomplicated
CPT/HCPCS: 36415; 80053; 80306; 81000; 83690; 85025

== ENCOUNTER 2016-11-03 10:48 | Emergency (ER) | payer BC ==
[~2016-11-03] VITALS: Ht 182.9 cm; Wt 90.7 kg
[2016-11-03] MEDS ORDERED: NS IV 1000 ML 1,000 ML IV SCH ×2 (11:00→12:45)
[2016-11-03] MEDS ORDERED: HALOPERIDOL 5 MG/ML (HALDOL) AMP IM ONE (11:00)
--- NOTE | 2016-11-03 11:21 | ED Abdominal Pain ---
General Chief Complaint: Abdominal/GI Problems Stated Complaint: VOMITING//LOWER ABD PAIN Source of Information: Patient Exam Limitations: No Limitations History of Present Illness Time Seen By Provider: 11:19 Initial Comments To ER with uncontrollable nausea vomiting and sharp left lower quadrant pain. This began 2 days ago while on a float trip. He was seen at a hospital in [facility] and given Zofran with minimal improvement. He's been here several times this month for nausea vomiting and diffuse abdominal pain relieved by hot showers. He is a regular smoker of marijuana. He denies having any marijuana use since his last visit here on the . Timing/Duration: 1-2 Days Severity/Quality: Moderate Location: Generalized Abdomen Radiation: No Radiation Activities at Onset: None Associated Symptoms: Nausea/Vomiting Allergies and Home Medications Allergies Coded Allergies: No Known Drug Allergies (Unverified , 08/18/16) Home Medications Cephalexin 500 Mg Capsule, 500 MG PO QID, #28 Prescribed by: LIZET WADE on 09/06/161818 Famotidine 20 Mg Tablet, 20 MG PO BID, #30 Prescribed by: LIZET WADE on 08/18/161928 Omeprazole 20 Mg Capsule.dr, 20 MG PO BID, #30 Prescribed by: LIZET WADE on 08/18/161928 Ondansetron 4 Mg Tab.rapdis, 4 MG SL Q4H PRN for NAUSEA-1ST LINE, #10 Prescribed by: LIZET WADE on 08/18/161928 Ondansetron 4 Mg Tab.rapdis, 4 MG PO Q4H PRN for NAUSEA/VOMITING-1ST LINE, #10 Prescribed by: LIZET WADE on 09/06/161818 Prochlorperazine Maleate 10 Mg Tablet, 10 MG PO TID PRN for NAUSEA/VOMITING-1ST LINE, #10 Prescribed by: SHERRY LERMA on 10/23/16 1208 Review of Systems Constitutional: see HPI, No chills, No fever EENTM: No Symptoms Reported Respiratory: No Symptoms Reported Cardiovascular: No Symptoms Reported Gastrointestinal: See HPI, Abdominal Pain, Nausea, Vomiting Genitourinary: No Symptoms Reported Musculoskeletal: no symptoms reported Skin: no symptoms reported Psychiatric/Neurological: No Symptoms Reported Endocrine: No Symptoms Reported Hematologic/Lymphatic: No Symptoms Reported Past Ghhwrao-Rchihp-Bfdhrl Hx Patient Social History Drug of Choice: CANNIBUS Type Used: Smokeless Tobacco 2nd Hand Smoke Exposure: No Recent Foreign Travel: No Contact w/Someone Who Travel: No Recent Hopitalizations: No Immunizations Up To Date Tetanus Booster (TDap): Less than 5yrs Seasonal Allergies Seasonal Allergies: No Surgeries HX Surgeries: Yes Surgeries: Orthopedic Respiratory Hx Respiratory Disorders: No Cardiovascular Hx Cardiac Disorders: No Neurological Hx Neurological Disorders: No Reproductive System Hx Reproductive Disorders: No Genitourinary Hx Genitourinary Disorders: No Gastrointestinal Hx Gastrointestinal Disorders: Yes Gastrointestinal Disorders: Gastroesophageal Reflux Musculoskeletal Hx Musculoskeletal Disorders: No Endocrine Hx Endocrine Disorders: No HEENT HX ENT Disorders: No Cancer Hx Cancer: No Psychosocial Hx Psychiatric Problems: No Integumentary HX Skin/Integumentary Disorder: Yes Skin/Integumentary Disorders: Psoriasis Blood Transfusions Hx Blood Disorders: No Family Medical History Significant Family History: Stroke Physical Exam Vital Signs VS - Last 72 Hours, by Label 11/03/16 11:19 Temp 98.1 Pulse 61 Resp 16 B/P (MAP) 145/102 Pulse Ox 98 O2 Delivery Room Air Capillary Refill : General Appearance: WD/WN, no apparent distress HEENT: PERRL/EOMI, normal ENT inspection Neck: non-tender, full range of motion Respiratory: no respiratory distress, no accessory muscle use, other ( tachypneic) Gastrointestinal: normal bowel sounds, soft, tenderness Extremities: normal range of motion, non-tender Neurologic/Psychiatric: alert, normal mood/affect, oriented x 3 Skin: normal color, warm/dry Progress/Results/Core Measures Results/Orders Lab Results Laboratory Tests Test 11/03/16 11:15 11/03/16 13:03 Range/Units White Blood Count 11.6 H 4.3-11.0 10^3/uL Red Blood Count 4.85 4.35-5.85 10^6/uL Hemoglobin 15.5 13.3-17.7 G/DL Hematocrit 43 40-54 % Mean Corpuscular Volume 89 80-99 FL Mean Corpuscular Hemoglobin 32 25-34 PG Mean Corpuscular Hemoglobin Concent 36 32-36 G/DL Red Cell Distribution Width 12.0 10.0-14.5 % Platelet Count 225 130-400 10^3/uL Mean Platelet Volume 11.3 H 7.4-10.4 FL Neutrophils (%) (Auto) 82 H 42-75 % Lymphocytes (%) (Auto) 12 12-44 % Monocytes (%) (Auto) 5 0-12 % Eosinophils (%) (Auto) 0 0-10 % Basophils (%) (Auto) 0 0-10 % Neutrophils # (Auto) 9.5 H 1.8-7.8 X 10^3 Lymphocytes # (Auto) 1.4 1.0-4.0 X 10^3 Monocytes # (Auto) 0.6 0.0-1.0 X 10^3 Eosinophils # (Auto) 0.0 0.0-0.3 10^3/uL Basophils # (Auto) 0.0 0.0-0.1 10^3/uL Sodium Level 140 135-145 MMOL/L Potassium Level 3.2 L 3.6-5.0 MMOL/L Chloride Level 104 98-107 MMOL/L Carbon Dioxide Level 23 21-32 MMOL/L Anion Gap 13 5-14 MMOL/L Blood Urea Nitrogen 9 7-18 MG/DL Creatinine 1.21 0.60-1.30 MG/DL Estimat Glomerular Filtration Rate > 60 BUN/Creatinine Ratio 7 0-20 Glucose Level 134 H 70-105 MG/DL Calcium Level 10.0 8.5-10.1 MG/DL Total Bilirubin 1.6 H 0.1-1.0 MG/DL Aspartate Amino Transf (AST/SGOT) 29 5-34 U/L Alanine Aminotransferase (ALT/SGPT) 39 0-55 U/L Alkaline Phosphatase 77 40-136 U/L Total Protein 7.9 6.4-8.2 GM/DL Albumin 4.6 H 3.2-4.5 GM/DL Lipase 12 8-78 U/L Urine Color YELLOW Urine Clarity CLEAR Urine pH 8 5-9 Urine Specific [place] 1.015 L 1.016-1.022 Urine Protein 1+ H NEGATIVE Urine Glucose (UA) NEGATIVE NEGATIVE Urine Ketones 4+ H NEGATIVE Urine Nitrite NEGATIVE NEGATIVE Urine Bilirubin NEGATIVE NEGATIVE Urine Urobilinogen NORMAL NORMAL MG/DL Urine Leukocyte Esterase 1+ H NEGATIVE Urine RBC (Auto) NEGATIVE NEGATIVE Urine RBC NONE /HPF Urine WBC 0-2 /HPF Urine Crystals NONE /LPF Urine Bacteria TRACE /HPF Urine Casts NONE /LPF Urine Mucus SMALL H /LPF Urine Culture Indicated NO Urine Opiates Screen NEGATIVE NEGATIVE Urine Oxycodone Screen NEGATIVE NEGATIVE Urine Methadone Screen NEGATIVE NEGATIVE Urine Propoxyphene Screen NEGATIVE NEGATIVE Urine Barbiturates Screen NEGATIVE NEGATIVE Ur Tricyclic Antidepressants Screen NEGATIVE NEGATIVE Urine Phencyclidine Screen NEGATIVE NEGATIVE Urine Amphetamines Screen NEGATIVE NEGATIVE Urine Methamphetamines Screen NEGATIVE NEGATIVE Urine Benzodiazepines Screen POSITIVE H NEGATIVE Urine Cocaine Screen NEGATIVE NEGATIVE Urine Cannabinoids Screen POSITIVE H NEGATIVE My Orders Orders - SHERRY LERMA BOBBIN DOFFER Cbc With Automated Diff (11/03/16 10:54) Comprehensive Metabolic Panel (11/03/16 10:54) Lipase (11/03/16 10:54) Ua Culture If Indicated (11/03/16 10:54) Drug Screen Stat (Urine) (11/03/16 10:54) Ns Iv 1000 Ml (Sodium Chloride 0.9%) (11/03/16 11:00) Haloperidol Injection (Haldol Injectio (11/03/16 11:00) Lorazepam Injection (Ativan Injection) (11/03/16 11:30) Diphenhydramine Injection (Benadryl Inje (11/03/16 11:30) Saline Lock/Iv-Start (11/03/16 11:25) Lorazepam Injection (Ativan Injection) (11/03/16 11:30) Ct Abd/Pelvis Wo(Kidney Stone) (11/03/16 11:32) Lorazepam Injection (Ativan Injection) (11/03/16 12:00) Ns Iv 1000 Ml (Sodium Chloride 0.9%) (11/03/16 12:45) Medications Given in ED Current Medications Medications Dose Ordered Sig/Fabian Route Start Time Stop Time Status Last Admin Dose Admin Diphenhydramine HCl 25 mg ONCE ONCE IVP 11/03/16 11:30 11/03/16 11:31 DC 11/03/16 11:35 25 MG Haloperidol Lactate 5 mg ONCE ONCE IM 11/03/16 11:00 11/03/16 11:01 DC 11/03/16 11:35 5 MG Lorazepam 1 mg ONCE ONCE IVP 11/03/16 11:30 11/03/16 11:31 DC 11/03/16 11:35 1 MG Vital Signs/I&O Vital Sign - Last 12Hours 11/03/16 11:19 Temp 98.1 Pulse 61 Resp 16 B/P (MAP) 145/102 Pulse Ox 98 O2 Delivery Room Air Departure Communication Progress Notes 1329- after 1 mg of Ativan IV, Haldol 5 mg IM, 25 mg of Benadryl IV, 2 L of IV fluids he states that he feels better. We will discharged home. Impression Impression: Primary Impression: Cannabinoid hyperemesis syndrome Disposition: HOME, SELF-CARE Condition: Improved Departure-Patient Inst. Decision time for Depature: 13:28 Referrals: MARIBEL SCHMIDT,LOCAL PHYSICIAN (PCP) Primary Care Physician Patient Instructions: NO INSTRUCTIONS GIVEN Add. Discharge Instructions: 1. You must stop marijuana use entirely. If not, expect to be back here in the emergency room frequently 2. Medication as directed All discharge instructions reviewed with patient and/or family. Voiced understanding. SHERRY LERMA BOBBIN DOFFER Nov 03, 2016 11:20
[2016-11-03 11:23] LABS: BASOPHILS % (AUTO) 0 % (0-10); EOSINOPHILS % (AUTO) 0 % (0-10); LYMPHOCYTES # (AUTO) 1.4 X 10^3 (1.0-4.0); LYMPHOCYTES % (AUTO) 12 % (12-44); MEAN CORPUSCULAR HEMOGLOBIN 32 PG (25-34); MEAN CORPUSCULAR HGB CONC 36 G/DL (32-36); MEAN CORPUSCULAR VOLUME 89 FL (80-99); MEAN PLATELET VOLUME 11.3 FL (7.4-10.4); MONOCYTES # (AUTO) 0.6 X 10^3 (0.0-1.0); MONOCYTES % (AUTO) 5 % (0-12); NEUTROPHILS # (AUTO) 9.5 X 10^3 (1.8-7.8); NEUTROPHILS % (AUTO) 82 % (42-75); PLATELET COUNT 225 10^3/uL (130-400); RED BLOOD COUNT 4.85 10^6/uL (4.35-5.85); WHITE BLOOD COUNT 11.6 10^3/uL (4.3-11.0)
[2016-11-03] MEDS ORDERED: LORazepam INJ 2 MG/ML (ATIVAN) VIAL IVP ONE ×3 (11:30→12:00)
[2016-11-03] MEDS ORDERED: diphenhydrAMINE 50 MG/ML INJ (BENADRYL) IVP ONE (11:30)
[2016-11-03 11:47] LABS: ALANINE AMINOTRANSFERASE 39 U/L (0-55); ALBUMIN 4.6 GM/DL (3.2-4.5); ANION GAP 13 MMOL/L (5-14); ASPARTATE AMINO TRANSFERASE 29 U/L (5-34); BILIRUBIN,TOTAL 1.6 MG/DL (0.1-1.0); BLOOD UREA NITROGEN 9 MG/DL (7-18); BUN/CREATININE RATIO 7 (0-20); CARBON DIOXIDE 23 MMOL/L (21-32); CHLORIDE 104 MMOL/L (98-107); CREATININE SERUM 1.21 MG/DL (0.60-1.30); GFR ESTIMATED > 60; GLUCOSE 134 MG/DL (70-105); HEMOLYSIS 9 (-100-29); ICTERUS 1.8 (-100-1.9); LIPASE 12 U/L (8-78); LIPEMIA 0 (-100-49); POTASSIUM 3.2 MMOL/L (3.6-5.0); SODIUM 140 MMOL/L (135-145); TOTAL PROTEIN 7.9 GM/DL (6.4-8.2)
--- NOTE | 2016-11-03 12:17 | Diagnostic Imaging Report ---
PROCEDURE: CT urinary tract, rule out kidney stone. TECHNIQUE: Multiple contiguous axial images were obtained through the abdomen and pelvis without the use of intravenous contrast. INDICATION: Left lower quadrant abdominal pain. Nausea, vomiting, diarrhea. COMPARISON: CT abdomen and pelvis with IV contrast 08/18/2016. FINDINGS: The lung bases are clear. The liver, gallbladder, pancreas, spleen, adrenals, kidneys and collecting systems are negative on this noncontrast exam. Negative appendix. No free intraperitoneal air or fluid. No lymphadenopathy. No evidence of bowel obstruction. No hernias. Osseous structures are unremarkable. IMPRESSION: Normal noncontrast abdomen and pelvis CT. No significant change. Dictated by: Dictated on workstation # [id number]
[2016-11-03 13:11] LABS: BILIRUBIN,URINE NEGATIVE (NEGATIVE); KETONES,URINE 4+ (NEGATIVE); LEUKOCYTE ESTERASE ,URINE 1+ (NEGATIVE); NITRITE,URINE NEGATIVE (NEGATIVE); PH,URINE 8 (5-9); PROTEIN,URINE 1+ (NEGATIVE); UROBILINOGEN,URINE NORMAL (NORMAL)
[2016-11-03 13:19] LABS: WBC,URINE 0-2 /HPF
[2016-11-03 13:37] VITALS: BP 130/74
--- OUTSIDE RECORDS SUMMARY | 2016-11-03 23:27 | XMS REPORT | Continuity of Care Document ---
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 Name Role Phone [employer] Unavailable Unavailable Problems Problem Status Onset Date Classification Date Reported Comments Source Generalized psoriasis (disorder) 07/27/2015 Diagnosis [facility] Unspecified local infection of skin and subcutaneous tissue 12/11/2013 Diagnosis 12/15/2013 [facility] No data available for this section Problem 12/15/2013 [facility] Medications Medication Details Route Status Patient Instructions Ordering Provider Order Date Source No Known Medications No known medications Active [facility] Allergies, Adverse Reactions, Alerts Substance Category Reaction Severity Reaction type Status Date Reported Comments Source NKA drug allergy Allergy Active [facility] Immunizations Immunization Date Given Site Status Last Updated Comments Source No data available for this section No data available for this section [facility], [facility] Results Vital Signs Encounters Location Location Details Encounter Type Encounter Number Reason For Visit Attending Provider ADM Date DC Date Status Source [facility] [id number] Day Surgery [id number] Madi Watsonffer 08/20/2011 08/20/2011 Active [facility]. [facility] [id number] Clinic ( Outpatient) [id number] . [facility] Walk-In 06/17/2013 Active [facility] [id number] Clinic ( Outpatient) [id number] Erasto Lai 06/17/2013 06/17/2013 Active [facility] [id number] 12/11/[id number] [facility] [id number] Heaven Garay 07/27/2015 07/28/2015 [facility] Procedures Procedure Code Date Perfomer Comments Source No data available for this section [facility] Plan of Care Social History Assessment and Plan Family History Value Date Source Advance Directives Order Name Results Value Date Source
== END 2016-11-03 13:37 | disposition home or self-care (01) ==
LOC: EDUNIT# 10:48 → ER 10:49
DX: F12.188 Cannabis abuse with other cannabis-induced disorder (principal); R11.2 Nausea with vomiting, unspecified; K21.9 Gastro-esophageal reflux disease without esophagitis
CPT/HCPCS: 36415; 74176; 80053; 80306; 81000; 83690; 85025; 96372; 96374; 96375